=== PATIENT | male | born 1975 | race Caucasian/White ===

== ENCOUNTER 2016-11-09 08:08 | Emergency (ER) | payer BC, OTHER ==
[2016-11-09] MEDS ORDERED: Nitroglycerin 0.4 MG TAB 1 EACH ONE (08:37)
[2016-11-09 09:04] LABS: #Basophils 0.2 thou/uL (0.0-0.2); #Eosinphils 0.5 thou/uL (0.0-0.7); #Lymphocytes 3.3 thou/uL (1.20-3.40); #Monocytes 0.6 thou/uL (0.11-0.59); #Neutrophils 5.8 thou/uL (1.40-6.50); %Basophils 1.8 % (0.0-1.0); %Lymphocytes 31.7 % (21.0-51.0); %Monocytes 5.9 % (0.0-10.0); %Neutrophils 55.6 % (42.0-75.0); Hemoglobin 15.4 g/dL (14.0-18.0); Mean Corpuscular HGB CONC 34.4 g/dL (32.0-36.0); Mean Corpuscular Hemoglobin 33.8 pg (27.0-31.0); Mean Corpuscular Volume 98.2 fl (80.0-94.0); Mean Platelet Volume 11.7 fL (7.4-10.4); Platelet Count 273 thou/uL (130-400); RBC Distribution Width 12.5 % (11.5-14.5); Red Blood Cell (RBC) Count 4.55 mill/uL (4.70-6.10); White Blood Cell (WBC) Count 10.4 thou/uL (4.8-10.8)
[2016-11-09 09:07] LABS: ALT (SGPT) 35 U/L (8-55); AST (SGOT) 41 U/L (5-34); Alkaline Phosphatase 81 U/L (40-150); Anion Gap 17 mmol/L (10-20); BUN (Urea Nitrogen) 17 mg/dL (8.9-20.6); Bilirubin, Total 0.4 mg/dL (0.2-1.2); CK (CPK) 412 U/L (30-200); Calc. Creatinine Clearance 0 mL/min (70-130); Calcium 8.4 mg/dL (7.8-10.44); Carbon Dioxide 21 mmol/L (22-29); Chloride 108 mmol/L (98-107); Estimated GFR-MDRD 74; Globulin 3.6 g/dL (2.4-3.5); Glucose 99 mg/dL (70-105); Magnesium 2.7 mg/dL (1.6-2.6); Potassium 4.7 mmol/L (3.5-5.1); Protein, Total 7.6 g/dL (6.0-8.3); Sodium 141 mmol/L (136-145)
[2016-11-09 09:10] LABS: INR-International Normal Ratio 0.9; PTT 30.3 SEC (22.9-36.1); Prothrombin Time 12.5 SEC (12.0-14.7)
[2016-11-09 09:14] LABS: CKMB 4.2 ng/mL (0-6.6); Troponin I Less than 0.010 ng/mL (< 0.028)
--- NOTE | 2016-11-09 10:02 | RAD ---
CHEST 1 VIEW: Date: 11/09/16 HISTORY: Chest pain. FINDINGS: No comparison. The cardiac silhouette is magnified by projection. Pulmonary vasculature is unremarkable. Mediastinu m is midline. There is no confluent air space consolidation or evidence of pneumothorax. IMPRESSION: No active cardiopulmonary abnormalities are demonstrated. POS: CINDI
== END 2016-11-09 10:10 | disposition short-term general hospital (02) ==
LOC: MADERS 08:08
DX: I20.0 Unstable angina (principal); E03.9 Hypothyroidism, unspecified; F17.220 Nicotine dependence, chewing tobacco, uncomplicated
CPT/HCPCS: 36415; 71010; 80053; 82553; 83735; 83880; 84484; 85025; 85610; 85730; 93005; 94760

== ENCOUNTER 2017-10-01 11:00 | Outpatient (CLI) | payer BC, OTHER ==
[2017-10-01 11:18] LABS: #Basophils 0.1 thou/uL (0.0-0.2); #Eosinphils 0.6 thou/uL (0.0-0.7); #Lymphocytes 3.1 thou/uL (1.20-3.40); #Monocytes 0.4 thou/uL (0.11-0.59); #Neutrophils 5.5 thou/uL (1.40-6.50); %Basophils 1.4 % (0.0-1.0); %Eosinophils 5.9 % (0.0-10.0); %Lymphocytes 32.4 % (21.0-51.0); %Monocytes 4.2 % (0.0-10.0); %Neutrophils 56.1 % (42.0-75.0); Hemoglobin 15.1 g/dL (14.0-18.0); Mean Corpuscular HGB CONC 32.3 g/dL (32.0-36.0); Mean Corpuscular Hemoglobin 31.2 pg (27.0-31.0); Mean Corpuscular Volume 96.6 fL (78.0-98.0); Mean Platelet Volume 9.6 fL (7.4-10.4); Platelet Count 270 thou/uL (130-400); RBC Distribution Width 13.4 % (11.5-14.5); Red Blood Cell (RBC) Count 4.84 mill/uL (4.70-6.10); White Blood Cell (WBC) Count 9.7 thou/uL (4.8-10.8)
[2017-10-01 11:31] LABS: ALT (SGPT) 50 U/L (8-55); AST (SGOT) 33 U/L (5-34); Albumin 3.8 g/dL (3.5-5.0); Alkaline Phosphatase 76 U/L (40-150); Anion Gap 14 mmol/L (10-20); BUN (Urea Nitrogen) 11 mg/dL (8.9-20.6); Bilirubin, Total 0.3 mg/dL (0.2-1.2); Calc. Creatinine Clearance 0 mL/min (70-130); Calcium 8.3 mg/dL (7.8-10.44); Carbon Dioxide 23 mmol/L (22-29); Chloride 109 mmol/L (98-107); Estimated GFR-MDRD Greater than 90; Globulin 2.8 g/dL (2.4-3.5); Glucose 127 mg/dL (70-105); Protein, Total 6.6 g/dL (6.0-8.3); Sodium 142 mmol/L (136-145)
[2017-10-01 11:50] LABS: Thyroid Stimulating Hormone 48.6235 uIU/mL (0.35-4.94)
[2017-10-01 20:16] LABS: Free T4 (Free Thyroxine) Less than 0.40 ng/dL (0.70-1.48)
== END 2017-10-01 11:01 | disposition home or self-care (01) ==
LOC: MADLABBHPM 11:00
PROVIDERS: ATTEND Family Medicine
DX: E03.9 Hypothyroidism, unspecified (principal); R42 Dizziness and giddiness
CPT/HCPCS: 36415; 80053; 84439; 84443; 85025; 93005; 93010

== ENCOUNTER 2018-08-15 02:31 | Emergency (ER) | payer BC, SELFPAY ==
[2018-08-15] MEDS ORDERED: Ketorolac Tromethamine 30 MG/ML VIAL ONE (03:20)
[2018-08-15 03:25] LABS: #Basophils 0.2 thou/uL (0.0-0.2); #Lymphocytes 3.2 thou/uL (1.20-3.40); %Basophils 1.2 % (0.0-1.0); %Eosinophils 5.5 % (0.0-10.0); %Lymphocytes 17.3 % (21.0-51.0); %Monocytes 5.5 % (0.0-10.0); %Neutrophils 70.5 % (42.0-75.0); Hemoglobin 15.9 g/dL (14.0-18.0); Mean Corpuscular HGB CONC 32.5 g/dL (32.0-36.0); Mean Corpuscular Volume 98.5 fL (78.0-98.0); Mean Platelet Volume 8.9 fL (7.4-10.4); Platelet Count 228 thou/uL (130-400); RBC Distribution Width 13.3 % (11.5-14.5); Red Blood Cell (RBC) Count 4.96 mill/uL (4.70-6.10); White Blood Cell (WBC) Count 18.5 thou/uL (4.8-10.8)
[2018-08-15] MEDS ORDERED: Morphine 4 MG/ML VIAL ONE ×2 (03:38→04:18)
[2018-08-15] MEDS ORDERED: Ondansetron PF 4 MG/2 ML Vial ONE (03:38)
[2018-08-15 03:45] LABS: ALT (SGPT) 37 U/L (8-55); AST (SGOT) 33 U/L (5-34); Albumin 4.4 g/dL (3.5-5.0); Alkaline Phosphatase 75 U/L (40-150); Anion Gap 15 mmol/L (10-20); BUN (Urea Nitrogen) 18 mg/dL (8.9-20.6); Bilirubin, Total 0.5 mg/dL (0.2-1.2); Calc. Creatinine Clearance 0 mL/min (70-130); Calcium 8.6 mg/dL (7.8-10.44); Carbon Dioxide 21 mmol/L (22-29); Chloride 109 mmol/L (98-107); Estimated GFR-MDRD 68; Globulin 3.4 g/dL (2.4-3.5); Glucose 127 mg/dL (70-105); Lipase 29 U/L (8-78); Potassium 3.5 mmol/L (3.5-5.1); Protein, Total 7.8 g/dL (6.0-8.3); Sodium 141 mmol/L (136-145)
--- NOTE | 2018-08-15 10:48 | CT ---
PRELIMINARY REPORT/[facility]/EMERGENCY AFTER HOURS PROCEDURE: EXAM: CT Abdomen and Pelvis Without Contrast EXAM DATE/TIME: 08/15/2018 3:30 AM CLINICAL HISTORY: 42 years old, male; Abdominal pain; Periumbilical; Additional info: N/v, abd pain TECHNIQUE: Imaging protocol: Axial computed tomography images of the abdomen and pelvis without contrast. Antoine l and sagittal reformatted images were created and reviewed. COMPARISON: No relevant prior studies available. FINDINGS: Lungs: The visualized portions of the lung bases are normal. ABDOMEN: Liver: The liver is within normal limits for this noncontrast study. Gallbladder and bile ducts: The gallbladder is normal. There is no evidence of biliary ductal dilatio n. Pancreas: The pancreas appears normal. No ductal dilatation. Spleen: The spleen is normal. Adrenals: The adrenal glands are normal. Kidneys and ureters: The right kidney is normal. The left kidney is normal. There is no evidence of h ydronephrosis. Stomach and bowel: The stomach is normal. The duodenum is unremarkable. The colon is normal. Appendix: A normal appendix is identified. PELVIS: Bladder: The bladder is normal. Reproductive: The prostate gland and seminal vesicles are normal. ABDOMEN and PELVIS: Intraperitoneal space: Normal. No free air. No significant fluid collection. Bones/joints: There is thoracic posterior spondylosis resulting in at least mild spinal canal stenosi s of the thoracic spine at T8-T9. Soft tissues: There is a fat-containing umbilical hernia. Vasculature: Normal. No abdominal aortic aneurysm. Lymph nodes: Normal. No enlarged lymph nodes. IMPRESSION: No acute abdominal pelvic pathology. Thank you for allowing us to participate in the care of your patient. Dictated and Authenticated by: Hussain Adam MD 08/15/2018 4:39 AM Central Time ([place] & [place]) FINAL REPORT EMERGENCY AFTER HOURS CT STONE PROTOCOL: Date: 08/15/18 IMPRESSION: I agree with the preliminary report provided by vRsandy. No definite renal or ureteral calculus is evide nt. No definite CT explanation for the patient's abdominal pain evident. There is a normal appendix i n the right lower quadrant. POS: BH
== END 2018-08-15 05:08 | disposition short-term general hospital (02) ==
LOC: MADERS 02:31
DX: R10.11 Right upper quadrant pain (principal); I10 Essential (primary) hypertension; E03.9 Hypothyroidism, unspecified; F17.220 Nicotine dependence, chewing tobacco, uncomplicated
CPT/HCPCS: 36416; 74176; 80053; 83690; 84484; 85025; 93005; 96374; 96375; 96376; J1885; J2270; J2405